=== PATIENT | female | born 1975 | race Caucasian/White ===

== ENCOUNTER 2019-11-28 15:51 | Emergency (ER) | payer BC ==
[~2019-11-28] VITALS: Ht 177.8 cm; Wt 108.3 kg
[2019-11-28] MEDS ORDERED: SODIUM CHLORIDE FLUSH 10ML SYR IVF ONE ×2 (17:00→19:30)
[2019-11-28 17:17] LABS: BASOPHILS # (AUTO) 0.04 x10^3/uL (0-0.1); BASOPHILS % (AUTO) 1 % (0-1); EOSINOPHILS # (AUTO) 0.21 x10^3/uL (0-0.4); EOSINOPHILS % (AUTO) 3 % (1-7); LYMPHOCYTES # (AUTO) 1.94 x10^3/uL (1-3.4); LYMPHOCYTES % (AUTO) 28 % (22-44); MD NO; MEAN CORPUSCULAR HEMOGLOBIN 31.1 pg (27.0-34.8); MEAN CORPUSCULAR HGB CONC 33.2 g/dL (32.4-35.8); MEAN CORPUSCULAR VOLUME 93.6 fL (80-100); MEAN PLATELET VOLUME 9.6 fL (7.4-10.4); MONOCYTES # (AUTO) 0.49 x10^3/uL (0.2-0.8); MONOCYTES % (AUTO) 7 % (2-9); NEUTROPHILS # (AUTO) 4.17 x10^3/uL (1.8-6.8); NEUTROPHILS % (AUTO) 61 % (42-75); PLATELET COUNT 199 x10^3/uL (130-400); RED BLOOD COUNT 5.05 x10^6/uL (3.82-5.3); RED CELL DISTRIBUTION WIDTH 14.5 % (9.6-15.2)
[2019-11-28 17:21] LABS: ALBUMIN 4.1 g/dL (3.4-5.0); ANION GAP 4 mmol/L (5-15); CALCIUM 8.9 mg/dL (8.5-10.1); CHLORIDE 112 mmol/L (98-107)
[2019-11-28 17:29] LABS: ALKALINE PHOSPHATASE 71 U/L (45-117); BILIRUBIN,TOTAL 0.4 mg/dL (0.2-1.0); CREATININE 0.63 mg/dL (0.55-1.02); TOTAL PROTEIN 7.8 g/dL (6.4-8.2)
[2019-11-28 17:35] LABS: ALANINE AMINOTRANSFERASE 22 U/L (12-78)
--- NOTE | 2019-11-28 18:33 | NUR ---
RECHECKED VSS STABLE WHILE PT IS WAITING IN LOBBY AFTER TRIAGED
--- NOTE | 2019-11-28 19:01 | NUR ---
pt to room from lobby
--- NOTE | 2019-11-28 19:10 | NUR ---
Note dottieone in EDM - 11/28/19 at 1911 by SIRISHA ASSUMED CARE OF PATIENT. PATIENT REPORTS BILATERAL ABD PAIN AND FLANK PAIN. PT ALSO REPORTS SHE WAS URINATING PINK TWO DAYS AGO. FAMILY AT BEDSIDE. CALL LIGHT IN PLACE. WILL CONTINUE TO MONITOR.
--- NOTE | 2019-11-28 19:17 | NUR ---
ASSUMED CARE OF PATIENT. PT C/O RIGHT LOWER ABD PAIN THAT GOES TO RIGHT FLANK. NO ACUTE DISTRESS NOTED. VS STABLE. CALL LIGHT IN PLACE. WILL CONTINUE TO MONITOR.
--- NOTE | 2019-11-28 19:23 | NUR ---
PT WENT TO US
[2019-11-28] MEDS ORDERED: KETOROLAC 30 MG/1 ML IVPush ONE (19:30)
[2019-11-28] MEDS ORDERED: KETOROLAC 30 MG/1 ML ONE (20:02)
[2019-11-28 20:30] LABS: MICROSCOPIC INDICATED
[2019-11-28 20:31] LABS: CULTURE INDICATED? YES
--- NOTE | 2019-11-28 20:45 | NUR ---
pt resting in room. no acute distress noted. call light in place. will continue to monitor.
--- NOTE | 2019-11-28 21:14 | NUR ---
REPORT RECEIVED, POC DISCUSSED, CARE ASSUMED.
[2019-11-28] MEDS ORDERED: OMNIPAQUE 350 MG/ML, 100ML BOTTLE ONE (21:16)
[2019-11-28 22:47] VITALS: BP 116/68
--- NOTE | 2019-11-28 22:49 | NUR ---
PT DC'D HOME WITH RX X 2 AND UNDERSTANDING OF INSTRUCTIONS. PT AND FAMILY MEMBER TO DC DECK ..
== END 2019-11-28 22:51 | disposition home or self-care (01) ==
LOC: ED 22:45
DX: R10.31 Right lower quadrant pain (principal)
CPT/HCPCS: 36415; 74177; 76830; 80053; 81001; 84703; 85025; 87086; 96374; 99284; J1885; Q9967

== ENCOUNTER 2021-01-03 13:25 | Outpatient (CLI) | payer BC | END 2021-01-03 23:59 | disposition home or self-care (01) | LOC: CFH 13:25 | PROVIDERS: ATTEND Internal Medicine | DX: N60.01 Solitary cyst of right breast (principal); N64.9 Disorder of breast, unspecified | CPT/HCPCS: 76642; 77065 ==